=== PATIENT | female | born 1980 | race Caucasian/White ===

== ENCOUNTER 2018-09-10 17:57 | Emergency (ER) | payer SELFPAY | END 2018-09-10 18:23 | disposition left against medical advice (07) | LOC: E/R 17:57 | DX: Z53.21 Procedure and treatment not carried out due to patient leaving prior to being seen by health care provider (principal) ==

== ENCOUNTER 2018-09-10 20:31 | Emergency (ER) | payer SELFPAY ==
[~2018-09-10] VITALS: Ht 175.3 cm; Wt 59.6 kg
[2018-09-10 20:57] VITALS: BP 109/61; PULSE 81; RESP 19; Ht 175.3 cm; Wt 59.6 kg
[2018-09-12] MEDS ORDERED: IBUP-1542 PO (19:22)
[2018-09-12] MEDS ORDERED: ACET325T33 PO (19:28)
== END 2018-09-11 00:52 | disposition left against medical advice (07) ==
LOC: E/R 20:31
DX: Z53.21 Procedure and treatment not carried out due to patient leaving prior to being seen by health care provider (principal)

== ENCOUNTER 2018-09-12 18:52 | Emergency (ER) | payer SELFPAY ==
[~2018-09-12] VITALS: Ht 175.3 cm; Wt 59.0 kg
[2018-09-12 19:13] VITALS: Ht 175.3 cm; Wt 59.0 kg
[2018-09-12] MEDS ORDERED: IBUP-1542 PO (19:22)
[2018-09-12] MEDS ORDERED: ACET325T33 PO (19:28)
[2018-09-12] MEDS ORDERED: IBUPROFEN 800 MG TAB PO ONE (19:30)
[2018-09-12] MEDS ORDERED: ACETAMINOPHEN 325 MG TAB PO ONE (19:30)
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
[2018-09-12 19:56] VITALS: BP 120/68; PULSE 80; RESP 18
== END 2018-09-12 19:56 | disposition home or self-care (01) ==
LOC: E/R 18:52
DX: R07.9 Chest pain, unspecified (principal); F17.210 Nicotine dependence, cigarettes, uncomplicated
CPT/HCPCS: 71045; 81025; 93005

== ENCOUNTER 2018-09-14 16:44 | Emergency (ER) | payer SELFPAY ==
[~2018-09-14] VITALS: Wt 59.5 kg
[~2018-09-14 16:44] MED LIST: ACET325T33 PO; IBUP-1542 PO
[2018-09-14 17:27] VITALS: BP 143/64; PULSE 101; RESP 18
== END 2018-09-14 18:25 | disposition left against medical advice (07) ==
LOC: E/R 16:44
DX: Z53.21 Procedure and treatment not carried out due to patient leaving prior to being seen by health care provider (principal)
CPT/HCPCS: 93005